=== PATIENT | female | born 1975 | race Caucasian/White ===

== ENCOUNTER → 2019-12-21 | Outpatient (REF) | payer BC | LOC: M SFHCWAGY 18:14 | PROVIDERS: ATTEND Obstetrics & Gynecology | DX: Z12.4 Encounter for screening for malignant neoplasm of cervix (principal) | CPT/HCPCS: 87624; G0123 ==

== ENCOUNTER → 2019-12-29 | Outpatient (CLI) | payer BC ==
--- NOTE | 2019-12-29 19:12 | REP ---
Clinical: Abnormal uterine bleeding. Technique: Transabdominal pelvic ultrasound followed by transvaginal examination for better evaluation of the endometrium and adnexa with color Doppler evaluation of the ovaries. Findings: Bladder is incompletely distended. Heterogeneous anteverted uterus measures 8.8 x 5.0 x 6.2 cm. Complex posterior intramural fibroid with calcifications measures 1.2 x 0.8 x 1.0 cm. Complex anterior intramural fibroid measures 1.1 x 0.9 x 1.1 cm. Endometrial complex measures approximately 6 mm thickness. The bilateral ovaries are normal in appearance and vascularity without torsion. Right ovary measures 2.7 x 1.9 x 1.8 cm and includes multiple follicles. Left ovary measures 2.5 x 1.5 x 1.8 cm and includes multiple follicles. No pelvic fluid or adnexal mass lesion. Impression: 1. Heterogeneous uterus with intramural fibroids suggested.
== END ==
LOC: M WHC 08:32
PROVIDERS: ATTEND Obstetrics & Gynecology
DX: N93.9 Abnormal uterine and vaginal bleeding, unspecified (principal); N85.4 Malposition of uterus